=== PATIENT | male | born 1995 | race African-American/Black ===

== ENCOUNTER 2017-06-16 03:11 | Emergency (ER) | payer SELFPAY ==
[2017-06-16 03:18] VITALS: RESP 16
[2017-06-16] MEDS ORDERED: NS 1,000 ML IV ONE (03:19)
--- NOTE | 2017-06-16 03:29 | EDPHY ---
H & P Stated Complaint: suprapubic & testicle pain HPI/ROS: HPI CHIEF COMPLAINT: Low abdominal pain and testicular pain. HISTORY OF PRESENT ILLNESS: This patient is a 22-year-old male he is otherwise healthy, he presents emergency room 330 in the morning and states approximately 3 hours ago he developed this left-sided sharp abdominal pain that radiated into his testicle. It nail has resolved. Was 3 hours ago. He states he just has some residual discomfort in his testicle. He has a history of testicular torsion. He thinks he had his right testicle mom removed and only has 1 left. He states he has similar presentation when he had torsion of his right testicle but ignored it and had discomfort for 12 hours and then had to have his testicle removed. He states now since arriving to the emergency room he has no pain. Mild discomfort to his residual testicle. No dysuria or burning when he urinates. No upper abdominal pain. He did state he had sharp lower abdominal pain on the left side. No left CVA pain but pain was in the left groin. He was watching TV when this happened. No trauma. No activity. Past Medical History: Denies significant medical history Past Surgical History: Testicular torsion with right testicle removed. Social History: Denies daily use drugs alcohol tobacco products. Family History: Noncontributory. ROS REVIEW OF SYSTEMS: A comprehensive 10 point review of systems is otherwise negative aside from elements mentioned in the history of present illness. Exam Constitutional appears well nontoxic, triage nursing summary reviewed, vital signs reviewed, awake/alert. Eyes normal conjunctivae and sclera, EOMI, PERRLA. HENT normal inspection, atraumatic, moist mucus membranes, no epistaxis, neck supple/ no meningismus, no raccoon eyes. Respiratory clear to auscultation bilaterally, normal breath sounds, no respiratory distress, no wheezing. Cardiovascular rate normal, regular rhythm, no murmur, no edema, distal pulses normal. Gastrointestinal soft, non-tender, no rebound, no guarding, normal bowel sounds, no distension, no pulsatile mass. Genitourinary exam with Pamela IRVIN as operative supervisor: Circumcised male. 1 testicle testicle appears to be on the left side of the scrotum. Nontender palpation. Normal epididymal cord. Nontender. No visible hernia or palpable hernia. No lesions. Testicle is not tender when I touch it. Appears to have an appropriate lye. Musculoskeletal no midline vertebral tenderness, full range of motion, no calf swelling, no tenderness of extremities, no meningismus, good pulses, neurovascularly intact. Skin pink, warm, & dry, no rash, skin atraumatic. Neurologic awake, alert and oriented x 3, AAOx3, moves all 4 extremities equally, motor intact, sensory intact, CN II-XII intact, normal cerebellar, normal vision, normal speech. Psychiatric normal mood/affect. Heme/Lymph/Immune no lymphadenopathy. Differential Diagnosis: Includes but is not limited to in a particular order testicular torsion, torsion and then untorsed, kidney stone, UTI, orchitis, epididymitis Medical Decision Making: Plan for this patient ultrasound of his residual testicle to make sure there is good blood flow and not torsed. Check blood work and urinalysis. Re-evaluate. Re-evaluation: 0355: Ultrasound of the testicle. The results of the study are good blood flow to the remaining testicle. No torsion. Small varicocele otherwise unremarkable ultrasound I discussed the results of this study with the radiologist Dr. Hall. [id number]: Patient re-evaluated this time resting comfortably no acute distress. AWaiting blood work results and UA. I did go over strict return precautions with this patient. It is possibly has intermittent torsion. I recommend if develops worsening pain in this testicle groin he needs to be re-evaluated immediately. Strict return precautions have been given. At this time is greater blood flow to the remaining testicle. No evidence of torsion. Return precautions given. He understands. Source: Patient - Personal History Current Tetanus/Diphtheria Vaccine: Unsure Current Tetanus Diphtheria and Acellular Pertussis (TDAP): Unsure - Medical/Surgical History Hx Asthma: Yes Hx Chronic Respiratory Disease: No Hx Diabetes: No Hx Cardiac Disease: No Hx Renal Disease: No Hx Cirrhosis: No Hx Alcoholism: No Hx HIV/AIDS: No Hx Splenectomy or Spleen Trauma: No Other PMH: asthma - Social History Smoking Status: Never smoked Constitutional: Initial Vital Signs Temperature (C) 37.1 C 06/16/17 03:16 Heart Rate 80 06/16/17 03:16 Respiratory Rate 16 06/16/17 03:16 Blood Pressure 135/79 H 06/16/17 03:16 O2 Sat (%) 95 10/31/17 03:16 Allergies/Adverse Reactions: No Known Allergies Allergy (Unverified 06/16/17 03:18) Medical Decision Making - Data Points Laboratory Results: Laboratory Results 06/16/17 03:30 06/16/17 03:30 06/16/17 06/16/17 06/16/17 04:20 03:30 03:30 WBC 6.56 10^3/uL 10^3/uL (3.80-9.50) RBC 5.06 10^6/uL 10^6/uL (4.40-6.38) Hgb 15.0 g/dL g/dL (13.7-17.5) Hct 43.3 % % (40.0-51.0) MCV 85.6 fL fL (81.5-99.8) MCH 29.6 pg pg (27.9-34.1) MCHC 34.6 g/dL g/dL (32.4-36.7) RDW 12.9 % % (11.5-15.2) Plt Count 219 10^3/uL 10^3/uL (150-400) MPV 10.0 fL fL (8.7-11.7) Neut % (Auto) 63.7 % % (39.3-74.2) Lymph % (Auto) 26.5 % % (15.0-45.0) [place] % (Auto) 7.6 % % (4.5-13.0) Eos % (Auto) 1.4 % % (0.6-7.6) Baso % (Auto) 0.6 % % (0.3-1.7) Nucleat RBC Rel Count 0.0 % % (0.0-0.2) Absolute Neuts (auto) 4.18 10^3/uL 10^3/uL (1.70-6.50) Absolute Lymphs (auto) 1.74 10^3/uL 10^3/uL (1.00-3.00) Absolute Monos (auto) 0.50 10^3/uL 10^3/uL (0.30-0.80) Absolute Eos (auto) 0.09 10^3/uL 10^3/uL (0.03-0.40) Absolute Basos (auto) 0.04 10^3/uL 10^3/uL (0.02-0.10) Absolute Nucleated RBC 0.00 10^3/uL 10^3/uL (0-0.01) Immature Gran % 0.2 % % (0.0-1.1) Immature Gran # 0.01 10^3/uL 10^3/uL (0.00-0.10) Sodium 141 mEq/L mEq/L (134-144) Potassium 4.0 mEq/L mEq/L (3.5-5.2) Chloride 105 mEq/L mEq/L (97-110) Carbon Dioxide 21 mEq/l L mEq/l (22-31) Anion Gap 15 mEq/L mEq/L (8-16) BUN 15 mg/dL mg/dL (7-23) Creatinine 1.2 mg/dL mg/dL (0.7-1.3) Estimated GFR > 60 Glucose 103 mg/dL H mg/dL (70-100) Calcium 9.7 mg/dL mg/dL (8.5-10.4) Total Bilirubin 0.4 mg/dL mg/dL (0.1-1.4) Conjugated Bilirubin 0.2 mg/dL mg/dL (0.0-0.5) Unconjugated Bilirubin 0.2 mg/dL mg/dL (0.0-1.1) AST 26 IU/L IU/L (17-59) ALT 32 IU/L IU/L (21-72) Alkaline Phosphatase 66 IU/L IU/L (38-126) Total Protein 7.2 g/dL g/dL (6.3-8.2) Albumin 4.3 g/dL g/dL (3.5-5.0) Lipase 72 IU/L IU/L (23-300) Urine Color PALE YELLOW Urine Appearance CLEAR Urine pH 5.0 (5.0-7.5) Ur Specific [place] 1.012 (1.002-1.030) Urine Protein NEGATIVE (NEGATIVE) Urine Ketones NEGATIVE (NEGATIVE) Urine Blood 1+ H (NEGATIVE) Urine Nitrate NEGATIVE (NEGATIVE) Urine Bilirubin NEGATIVE (NEGATIVE) Urine Urobilinogen NEGATIVE EU EU (0.2-1.0) Ur Leukocyte Esterase NEGATIVE (NEGATIVE) Urine RBC 1-3 /hpf /hpf (0-3) Urine WBC 1-3 /hpf /hpf (0-3) Ur Epithelial Cells NONE SEEN /lpf /lpf (NONE-1+) Urine Glucose NEGATIVE (NEGATIVE) Medications Given: Discontinued Medications Sodium Chloride (Ns) 1,000 mls @ 0 mls/hr IV EDNOW ONE; Wide Open PRN Reason: Protocol Stop: 06/16/17 03:20 Last Admin: 06/16/17 03:30 Dose: 1,000 mls Departure - Departure Disposition: Home, Routine, Self-Care Clinical Impression: Testicle pain Condition: Good Instructions: Testicle Pain (ED) Additional Instructions: 1. Return immediately to the emergency room if develops worsening symptoms includes testicle pain or abdominal pain fever vomiting. Referrals: NONE *PRIMARY CARE P,. [Primary Care Provider] - As per Instructions
[2017-06-16 03:41] LABS: PLATELET COUNT 219 10^3/uL (150-400)
[2017-06-16 05:06] VITALS: BP 125/73; PULSE 79; TEMP 98.6; O2SAT 96
== END 2017-06-16 05:05 | disposition home or self-care (01) ==
DX: N50.819 Testicular pain, unspecified (principal); J45.909 Unspecified asthma, uncomplicated; E86.9 Volume depletion, unspecified

== ENCOUNTER 2018-02-07 20:52 | Emergency (ER) | payer SELFPAY ==
--- NOTE | 2018-02-07 21:21 | EDPHY ---
General Time Seen by Provider: 02/07/18 21:09 Narrative: CHIEF COMPLAINT: Lower abdominal pain, urinary complaints, testicular pain HISTORY OF PRESENT ILLNESS: Patient presents with complaints of lower abdominal pain with some testicular pain and dysuria. The dysuria has been present for several weeks. He thought this might be a UTI, thus he has been drinking more water. He has had no fever flank pain. He has drainage from the penis. He does have some mild, intermittent pain in the testicle. He has a solitary testicle due to previous torsion. He has no sudden onset of pain, severe pain or persistent pain. He has history of sexual intercourse with 2 partners this month, 1 unprotected. No no complaints from the partner. No other associated complaints or modifying factors REVIEW OF SYSTEMS: Ten systems reviewed and are negative unless otherwise noted in the HPI PCP: None currently SPECIALISTS: None currently PAST MEDICAL HISTORY: Torsion PAST SURGICAL HISTORY: Right orchidectomy remotely SOCIAL HISTORY: Nonsmoker. Lives and works here locally. FAMILY HISTORY: Noncontributory EXAMINATION General Appearance: Alert, no distress Head: normocephalic, atraumatic Eyes: Pupils equal and round, no conjunctival pallor or injection ENT, Mouth: Mucous membranes moist Neck: Normal inspection, supple, non-tender Respiratory: Lungs are clear to auscultation Cardiovascular: Regular rate and rhythm Gastrointestinal: Abdomen is soft and nontender. No tympany rigidity. No guarding. No mass. No CVA tenderness : Circumcised penis without any external lesions or abnormalities. Left testicle is unremarkable in appearance and no tenderness palpation. Right testicle surgically absent. Normal cremasteric on the right. Skin: Warm and dry, no rash. No cellulitic changes Extremities: Nontender, no pedal edema Psychiatric: Mood and affect normal DIFFERENTIAL DIAGNOSES: Including but not limited to torsion, epididymitis, varicocele, spermatocele, hydrocele, UTI, cystitis, sick due to the infection MDM: 9:23 p.m. Generalized urinary discomfort with some testicular pain and discomfort for the past 2 days. Abdominal exam is completely benign. He is afebrile with normal vital signs otherwise is well. I do not feel he warrants any IV access at this time, but I do feel he warrants urinary studies including sexually transmitted infection. Also ultrasound of the testicle has been ordered. 10:03 p.m Notified by radiologist Dr. Tate. The left testicle is unremarkable in appearance. No torsion. Residual varicocele present. No epididymitis. 10:05 p.m. Patient re-evaluated. Notified him of the ultrasound findings and we will now be obtain a clean urine sample. 10:40 p.m. Patient re-evaluated. Urinalysis unremarkable for signs of infection. He does have pending GC and chlamydia test. He has elected for empiric coverage for this. Do feel this is reasonable given the patient's history and exam. I do not feel he warrants any further care as his abdominal remains completely benign. He has instructions to follow up with Urology for the varicocele and the on-call primary care physician for further care. We discussed ED precautions and he is comfortable this plan and discharged home stable condition. SUPERVISION: This patient was independently evaluated without direct involvement of or examination by the attending physician. - Diagnostics Imaging Results: Imaging Impressions Testicular Ultrasound 02/07/18 21:22 Impression: 1. Normal-appearing left testicle. 2. Previous right orchiectomy. 3. Stable varicocele on the left. Findings discussed with Juno Delgadillo PAC at 22:02 hour, 02/07/2018. - History Smoking Status: Never smoked - Objective Vital Signs: Initial Vital Signs Temperature (C) 98.6 F 02/07/18 21:01 Heart Rate 84 02/07/18 21:01 Respiratory Rate 16 02/07/18 21:01 Blood Pressure 147/108 H 02/07/18 21:01 O2 Sat (%) 96 02/07/18 21:01 O2 Delivery Mode Room Air Allergies/Adverse Reactions: No Known Allergies Allergy (Verified 02/07/18 21:01) Home Medications: Medication Instructions Recorded NK [No Known Home Meds] 02/07/18 Laboratory Results: 02/07/18 22:15 Urine Color COLORLESS Urine Appearance CLEAR Urine pH 6.0 (5.0-7.5) Ur Specific [place] 1.002 (1.002-1.030) Urine Protein NEGATIVE (NEGATIVE) Urine Ketones NEGATIVE (NEGATIVE) Urine Blood NEGATIVE (NEGATIVE) Urine Nitrate NEGATIVE (NEGATIVE) Urine Bilirubin NEGATIVE (NEGATIVE) Urine Urobilinogen NEGATIVE EU EU (0.2-1.0) Ur Leukocyte Esterase NEGATIVE (NEGATIVE) Urine RBC 1-3 /hpf /hpf (0-3) Urine WBC 1-3 /hpf /hpf (0-3) Ur Epithelial Cells NONE SEEN /lpf /lpf (NONE-1+) Urine Bacteria TRACE /hpf H /hpf (NONE SEEN) Urine Glucose NEGATIVE (NEGATIVE) Medications Given: Discontinued Medications Azithromycin (Zithromax) 1,000 mg PO EDNOW ONE PRN Reason: Protocol Stop: 02/07/18 22:42 Last Admin: 02/07/18 22:54 Dose: 1,000 mg Ceftriaxone Sodium (Rocephin Im Syringe) 250 mg IM EDNOW ONE PRN Reason: Protocol Stop: 02/07/18 22:50 Last Admin: 02/07/18 23:18 Dose: 250 mg Departure - Departure Disposition: Home, Routine, Self-Care Clinical Impression: Dysuria, Varicocele, Testicular pain, left Condition: Good Instructions: Varicocele (ED), Dysuria (ED) Additional Instructions: 1. Contact the on-call primary care physician to establish as a new patient 2. Contact the on-call urologist for further care of the testicular pain in the right varicocele 3. Return here for any change in her symptoms, persistent pain, fever, painful urination, flank pain 4. You have a pending test for sexually transmitted infection. You will need to contact us tomorrow for these results. Should you wish to pursue any further testing, you may present to primary care physician or Health Department Referrals: Arthur Vargas MD [Medical Doctor] - As per Instructions Eduar Chauhan MD [Medical Doctor] - As per Instructions
[2018-02-07] MEDS ORDERED: AZITHROMYCIN 250 MG TAB PO ONE (22:41)
[2018-02-07] MEDS ORDERED: cefTRIAXone 1 GM/DEXTROSE 1 GM/50 ML BAG IV ONE (22:50)
[2018-02-07 23:22] VITALS: BP 132/70
== END 2018-02-07 23:21 | disposition home or self-care (01) ==
DX: R30.0 Dysuria (principal); I86.1 Scrotal varices
CPT/HCPCS: J0696

== ENCOUNTER 2018-05-17 07:49 | Emergency (ER) | payer SELFPAY ==
[2018-05-17] MEDS ORDERED: NS 1,000 ML IV ONE (08:12)
--- NOTE | 2018-05-17 08:13 | EDPHY ---
H & P Stated Complaint: SOB/Fatigue Time Seen by Provider: 05/17/18 08:07 HPI/ROS: CHIEF COMPLAINT: Dizziness, fatigue, dyspnea HISTORY OF PRESENT ILLNESS: The patient presents to the ED with dizziness, fatigue and dyspnea for the past 2 weeks. The patient denies fever or productive cough. He denies abdominal pain, vomiting or diarrhea. He denies any arthralgias. The patient reports his symptoms are present throughout the day. He does have a history of asthma and has used his albuterol inhaler occasionally over the past several weeks. He has continued to exercise without symptoms of exertional chest pain or shortness of breath. The patient denies any melena or hematemesis. The patient denies additional acute complaints. REVIEW OF SYSTEMS: A comprehensive 10 point review of systems is otherwise negative aside from elements mentioned in the history of present illness. Source: Patient Exam Limitations: No limitations - Personal History Current Tetanus/Diphtheria Vaccine: Yes - Medical/Surgical History Hx Asthma: Yes Hx Chronic Respiratory Disease: No Hx Diabetes: No Hx Cardiac Disease: No Hx Renal Disease: No Hx Cirrhosis: No Hx Alcoholism: No Hx HIV/AIDS: No Hx Splenectomy or Spleen Trauma: No Other PMH: asthma - Social History Smoking Status: Never smoked - Physical Exam Exam: General Appearance: Alert, no distress Eyes: Pupils equal and round no pallor or injection ENT, Mouth: Mucous membranes moist Respiratory: There are no retractions, lungs are clear to auscultation Cardiovascular: Regular rate and rhythm Gastrointestinal: Abdomen is soft and nontender, no masses, bowel sounds normal Neurological: A&O, normal motor function, normal sensory exam, normal cranial nerves Skin: Warm and dry, no rashes Musculoskeletal: Neck is supple nontender Extremities: symmetrical, full range of motion Constitutional: Initial Vital Signs Temperature (C) 36.5 C 05/17/18 07:55 Heart Rate 63 05/17/18 07:55 Respiratory Rate 18 05/17/18 07:55 Blood Pressure 123/70 H 05/17/18 07:55 O2 Sat (%) 96 05/17/18 07:55 O2 Delivery Mode Room Air Allergies/Adverse Reactions: No Known Allergies Allergy (Verified 05/17/18 07:58) Home Medications: Medication Instructions Recorded NK [No Known Home Meds] 02/07/18 Medical Decision Making - Diagnostics EKG Interpretation: EKG: Complete interpretation has been separately recorded in the [facility] archive. Summary impression: Sinus rhythm, rate 57, mild ST segment elevation diffusely suggesting pericarditis. Imaging Results: Imaging Impressions Chest X-Ray 05/17/18 08:12 Impression: Negative. ED Course/Re-evaluation: The patient presents to the ED for evaluation of several weeks of fatigue and slight dyspnea. The patient denies any pleuritic chest pain. The patient is hemodynamically stable upon arrival. The patient's chest x-ray demonstrates no evidence of acute disease. Laboratory testing is unremarkable. EKG did demonstrate the possibility of early repolarization versus pericarditis however the patient has no clinical evidence of pericarditis. The patient did receive IV fluids in the emergency department. This point time I see no evidence of an acute medical emergency. I have encouraged the patient to continue to use his albuterol as needed. The patient has been instructed to increase his fluid intake. It is certainly possible he is experiencing a viral syndrome. Patient will be discharged home with instructions to return to the ED for markedly worsening symptoms. The patient should follow up with his primary care provider for any unimproved symptoms. Differential Diagnosis: Differential diagnosis considered includes asthma, bronchitis, pneumonia, dehydration, metabolic abnormality, renal failure, anemia - Data Points Laboratory Results: Laboratory Results 05/17/18 08:15 05/17/18 08:15 05/17/18 05/17/18 08:15 08:15 WBC 5.55 10^3/uL 10^3/uL (3.80-9.50) RBC 4.78 10^6/uL 10^6/uL (4.40-6.38) Hgb 13.8 g/dL g/dL (13.7-17.5) Hct 41.3 % % (40.0-51.0) MCV 86.4 fL fL (81.5-99.8) MCH 28.9 pg pg (27.9-34.1) MCHC 33.4 g/dL g/dL (32.4-36.7) RDW 12.7 % % (11.5-15.2) Plt Count 213 10^3/uL 10^3/uL (150-400) MPV 10.0 fL fL (8.7-11.7) Neut % (Auto) 43.1 % % (39.3-74.2) Lymph % (Auto) 45.6 % H % (15.0-45.0) [place] % (Auto) 8.1 % % (4.5-13.0) Eos % (Auto) 2.5 % % (0.6-7.6) Baso % (Auto) 0.5 % % (0.3-1.7) Nucleat RBC Rel Count 0.0 % % (0.0-0.2) Absolute Neuts (auto) 2.39 10^3/uL 10^3/uL (1.70-6.50) Absolute Lymphs (auto) 2.53 10^3/uL 10^3/uL (1.00-3.00) Absolute Monos (auto) 0.45 10^3/uL 10^3/uL (0.30-0.80) Absolute Eos (auto) 0.14 10^3/uL 10^3/uL (0.03-0.40) Absolute Basos (auto) 0.03 10^3/uL 10^3/uL (0.02-0.10) Absolute Nucleated RBC 0.00 10^3/uL 10^3/uL (0-0.01) Immature Gran % 0.2 % % (0.0-1.1) Immature Gran # 0.01 10^3/uL 10^3/uL (0.00-0.10) Sodium 138 mEq/L mEq/L (135-145) Potassium 3.9 mEq/L mEq/L (3.3-5.0) Chloride 104 mEq/L mEq/L (97-110) Carbon Dioxide 25 mEq/l mEq/l (22-31) Anion Gap 9 mEq/L mEq/L (8-16) BUN 16 mg/dL mg/dL (7-23) Creatinine 1.1 mg/dL mg/dL (0.7-1.3) Estimated GFR > 60 Glucose 99 mg/dL mg/dL (70-100) Calcium 9.6 mg/dL mg/dL (8.5-10.4) Total Bilirubin 0.3 mg/dL mg/dL (0.1-1.4) Conjugated Bilirubin 0.2 mg/dL mg/dL (0.0-0.5) Unconjugated Bilirubin 0.1 mg/dL mg/dL (0.0-1.1) AST 42 IU/L IU/L (17-59) ALT 42 IU/L IU/L (21-72) Alkaline Phosphatase 72 IU/L IU/L (38-126) Troponin I 0.012 ng/mL ng/mL (0.000-0.034) Total Protein 6.9 g/dL g/dL (6.3-8.2) Albumin 4.0 g/dL g/dL (3.5-5.0) Medications Given: Discontinued Medications Sodium Chloride (Ns) 1,000 mls @ 0 mls/hr IV EDNOW ONE; Wide Open PRN Reason: Protocol Stop: 05/17/18 08:13 Last Admin: 05/17/18 08:32 Dose: 1,000 mls Departure - Departure Disposition: Home, Routine, Self-Care Clinical Impression: Fatigue Condition: Good Instructions: Fatigue (ED) Additional Instructions: 1. The testing in the emergency department today demonstrates no evidence of an obvious abnormality. 2. It is certainly possible your experiencing a prolonged a mild viral illness. I recommend increasing your fluid intake, using Tylenol and ibuprofen as needed and resting. 3. Please return to the ED for markedly worsening symptoms or other concerns. 4. I do suggest follow-up with a primary care provider. If you do not have one you have been given the contact number of our on-call primary care provider whom you can make an appointment with. Referrals: Cody Henry MD [Medical Doctor] - As per Instructions
--- NOTE | 2018-05-17 08:30 | CPEKG ---
Test Reason : OPEN Blood Pressure : / mmHG Vent. Rate : 057 BPM Atrial Rate : 057 BPM P-R Int : 156 ms QRS Dur : 086 ms QT Int : 418 ms P-R-T Axes : 059 046 023 degrees QTc Int : [address] elevation suggests acute pericarditis Confirmed by Cirilo De Jesus ([id number]) on 05/17/2018 8:30:07 AM Referred By: Confirmed By:Cirilo De Jesus
[2018-05-17 08:37] LABS: PLATELET COUNT 213 10^3/uL (150-400)
[2018-05-17 09:58] VITALS: BP 141/79
== END 2018-05-17 09:59 | disposition home or self-care (01) ==
DX: R53.83 Other fatigue (principal); R42 Dizziness and giddiness; R06.00 Dyspnea, unspecified; E86.9 Volume depletion, unspecified

== ENCOUNTER 2018-10-27 05:10 | Emergency (ER) | payer OTHER ==
--- NOTE | 2018-10-27 05:22 | EDPHY ---
H & P Stated Complaint: SOB, cough since 2100 Time Seen by Provider: 10/27/18 05:22 HPI/ROS: HPI CHIEF COMPLAINT: Shortness of breath, wheezing. HISTORY OF PRESENT ILLNESS: 23-year-old male, history of asthma, presents emergency room stating that he has been sick with an upper respiratory tract infection for the past week. This evening and worsening cough and wheezing. Decided come the emergency room due to this. He arrives to the emergency room and is hemodynamically stable no acute distress with no respiratory distress. His vital signs are stable with no hypoxia. He denies any chest pain. Main complaint cough and wheezing. Past Medical History: Denies significant medical history except for asthma. No history of intubation. Past Surgical History: Denies recent surgical history Social History: Denies drugs alcohol tobacco. Family History: Noncontributory ROS REVIEW OF SYSTEMS: 10 Systems were reviewed and negative with the exception of the elements mentioned in the history of present illness. Exam Constitutional triage nursing summary reviewed, vital signs reviewed, awake/ alert. Vital signs stable. Eyes normal conjunctivae and sclera, EOMI, PERRLA. HENT normal inspection, atraumatic, moist mucus membranes, no epistaxis, neck supple/ no meningismus, no raccoon eyes. Respiratory faint wheezing throughout lung nam, bronchitic cough on exam. Cardiovascular rate normal, regular rhythm, no murmur, no edema, distal pulses normal. Gastrointestinal soft, non-tender, no rebound, no guarding, normal bowel sounds, no distension, no pulsatile mass. Genitourinary no CVA tenderness. Musculoskeletal no midline vertebral tenderness, full range of motion, no calf swelling, no tenderness of extremities, no meningismus, good pulses, neurovascularly intact. Skin pink, warm, & dry, no rash, skin atraumatic. Neurologic awake, alert and oriented x 3, AAOx3, moves all 4 extremities equally, motor intact, sensory intact, CN II-XII intact, normal cerebellar, normal vision, normal speech. Psychiatric normal mood/affect. Heme/Lymph/Immune no lymphadenopathy. Differential Diagnosis: Includes but is not limited to in a particular order acute bronchitis, viral syndrome, URI, pneumonia, back to normal, viral pneumonia, asthma Medical Decision Making: Plan for this patient DuoNeb breathing treatment, chest x-ray two view to rule pneumonia, prednisone 60 mg, and re-evaluate. Re-evaluation: Chest x-ray two view: Reviewed by myself. Negative for pneumonia. Re-examination 6:35 a.m.: Patient re-examined at this time. Resting comfortably in no acute distress. Good air movement bilaterally. Feels better after DuoNeb breathing treatment. Chest x-ray is negative for pneumonia. Patient be given a take-home albuterol inhaler, prednisone prescription as well. He received prednisone here. Additionally discussed return precautions he understands return emergency room if develops worsening shortness of breath, fever, vomiting, not doing well. He is comfortable this plan. Source: Patient - Personal History Current Tetanus/Diphtheria Vaccine: Yes - Medical/Surgical History Hx Asthma: Yes Hx Chronic Respiratory Disease: No Hx Diabetes: No Hx Cardiac Disease: No Hx Renal Disease: No Hx Cirrhosis: No Hx Alcoholism: No Hx HIV/AIDS: No Hx Splenectomy or Spleen Trauma: No Other PMH: asthma - Social History Smoking Status: Never smoked Constitutional: Initial Vital Signs Temperature (C) 37.0 C 10/27/18 05:16 Heart Rate 78 10/27/18 05:16 Respiratory Rate 20 10/27/18 05:16 Blood Pressure 144/82 H 10/27/18 05:16 O2 Sat (%) 94 10/27/18 05:16 O2 Delivery Mode Room Air Allergies/Adverse Reactions: No Known Allergies Allergy (Verified 10/27/18 05:17) Home Medications: Medication Instructions Recorded predniSONE 60 mg PO DAILY #15 tab 10/27/18 Medical Decision Making - Data Points Medications Given: Discontinued Medications Albuterol/Ipratropium (Duoneb) 3 ml IH EDNOW ONE Stop: 10/27/18 05:31 Last Admin: 10/27/18 05:32 Dose: 3 ml Prednisone (Prednisone) 60 mg PO EDNOW ONE Stop: 10/27/18 05:31 Last Admin: 10/27/18 05:32 Dose: 60 mg Departure - Departure Disposition: Home, Routine, Self-Care Clinical Impression: Acute bronchitis Condition: Good Instructions: Acute Bronchitis (ED) Additional Instructions: 1. Please stay well-hydrated drink lots of fluids. 2. Prednisone as prescribed. 3. Albuterol inhaler 2 puffs every 4 hr as needed for cough, wheezing and shortness Of breath 4. Return to the emergency room if you're doing worse. This includes worsening shortness of breath, fever, vomiting. Referrals: NONE *PRIMARY CARE P,. [Primary Care Provider] - As per Instructions [facility] [Clinic] - As per Instructions Prescriptions: predniSONE 60 mg PO DAILY #15 tab
[2018-10-27] MEDS ORDERED: IPRATROPIUM/ALBUTEROL 3 ML DEYVIAL IH ONE (05:30)
[2018-10-27] MEDS ORDERED: predniSONE 20 MG TAB PO ONE (05:30)
[2018-10-27] MEDS ORDERED: IPRATROPIUM/ALBUTEROL 3 ML DEYVIAL ONE (05:31)
[2018-10-27] MEDS ORDERED: predniSONE 20 MG TAB ONE (05:31)
[2018-10-27] MEDS ORDERED: ALBUTEROL INH PREPACK MDI TAKEHOME ONE (05:32)
[2018-10-27 06:52] VITALS: BP 163/79
== END 2018-10-27 06:54 | disposition home or self-care (01) ==
DX: J20.9 Acute bronchitis, unspecified (principal); J45.909 Unspecified asthma, uncomplicated
CPT/HCPCS: J7512